=== PATIENT | male | born 1965 | race Two or more races ===

== ENCOUNTER 2023-10-06 14:26 | Emergency (ER) | payer OTHER ==
[2023-10-06 16:16] VITALS: BP 142/87; PULSE 97; RESP 17; TEMP 98.7; O2SAT 97
== END 2023-10-06 16:18 | disposition home or self-care (01) ==
LOC: ER 14:26 → EEVIPCON 14:26 → ER 16:17
DX: M79.604 Pain in right leg (principal); R06.02 Shortness of breath; I12.9 Hypertensive chronic kidney disease with stage 1 through stage 4 chronic kidney disease, or unspecified chronic kidney disease; N18.9 Chronic kidney disease, unspecified; J44.9 Chronic obstructive pulmonary disease, unspecified; E78.5 Hyperlipidemia, unspecified; Z86.73 Personal history of transient ischemic attack (TIA), and cerebral infarction without residual deficits; Z98.890 Other specified postprocedural states; Z87.891 Personal history of nicotine dependence
CPT/HCPCS: 93971